=== PATIENT | female | born 1985 | race Caucasian/White ===

== ENCOUNTER 2016-10-14 05:05 | Emergency (ER) | payer OTHER ==
[~2016-10-14] VITALS: Ht 157.5 cm; Wt 72.7 kg
[~2016-10-14 05:05] MED LIST: ACET1TAB40 PO; AMO500 PO; CEPH-443 PO; VIGA RIGHT EYE
[2016-10-14 05:20] VITALS: Ht 157.5 cm; Wt 72.7 kg
[2016-10-14] MEDS ORDERED: IBUP-1542 PO (06:24)
[2016-10-14] MEDS ORDERED: CEPH-443 PO (06:24)
--- NOTE | 2016-10-14 06:32 | ERD ---
ER Documentation Chief Complaint Date/Time DATE: 10/14/16 TIME: 06:26 Chief Complaint LT BIG TOE/NAIL PAIN AND SWELLING HX DM. STATES "THROBBING PAIN" HPI 30-year-old female with history of diabetes complaining of pain around her left big toenail. Patient states that she accidentally pulled back the lateral edge of the left big toe nail 2 days ago. A call some bleeding and pain. She has been having pain ever since. And that toe surrounding the nail is swollen. Because she has diabetes, she is concerned about infection. She takes glipizide daily for her diabetes, but does not check her blood sugar daily. Denies fever or chills. ROS All systems reviewed and are negative except as per history of present illness. Medications Home Meds Active Scripts Cephalexin* (Keflex*) 500 Mg Capsule, 500 MG PO QID for 5 Days, CAP Prov:MIHIR RUDOLPH LOCKSTITCH HEMMER 10/14/16 Ibuprofen* (Motrin*) 600 Mg Tab, 600 MG PO Q6H Y for PAIN AND OR ELEVATED TEMP, #30 TAB Prov:MIHIR RUDOLPH LOCKSTITCH HEMMER 10/14/16 Moxifloxacin Hcl* (Vigamox*) 0.5% - 3 Ml Opht, 1 DROP RIGHT EYE TID, #1 EA Prov:JEREMIAS GRAVES PA-C 12/19/15 Cephalexin* (Keflex*) 500 Mg Capsule, 500 MG PO QID for 5 Days, CAP Prov:JEREMIAS GRAVES PA-C 12/19/15 Acetaminophen-Codeine* (Acetaminophen-Cod #3*) 300-30 Mg Tab, 1 TAB PO Q4H Y for PAIN, #10 TAB Prov:KELLY WONG NP 07/20/15 Amoxicillin* (Amoxicillin*) 500 Mg Cap, 500 MG PO TID for 10 Days, CAP Prov:KELLY WONG LOCKSTITCH HEMMER 07/20/15 Allergies Allergies: Coded Allergies: No Known Drug Allergies (Verified Allergy, Unknown, 12/19/15) PMhx/Soc Medical and Surgical Hx: pt denies Surgical Hx History of Surgery: No Anesthesia Reaction: No Hx Neurological Disorder: No Hx Respiratory Disorders: No Hx Cardiac Disorders: No Hx Psychiatric Problems: No Hx Miscellaneous Medical Probl: Yes (DM ) Hx Alcohol Use: Yes Hx Substance Use: No Hx Tobacco Use: No Smoking Status: Never smoker Physical Exam Vitals Vital Signs Date Time Temp Pulse Resp B/P Pulse Ox O2 Delivery O2 Flow Rate FiO2 10/14/16 05:20 97.4 89 18 123/84 98 Physical Exam General: Well-developed, well-nourished, conscious and coherent, in no distress Skin: Warm and dry without rash, good texture and turgor Head: Normocephalic without evidence of trauma Eyes: Sclera and conjunctivae normal; pupils equal, round, and reactive to light; extraocular movements are intact Chest: Normal AP diameter. Good expansion without retractions. Nontender. Lungs are clear to auscultate bilaterally with good tidal volume Heart: Regular rate and rhythm. No murmur, rub, or gallops heard Extremities: Distal left big toe erythematous and swollen, slightly warm to touch, extremely tender. Full range of motion. Good strength bilaterally. No clubbing, cyanosis, or edema. Peripheral pulses are intact. Sensation intact Neuro: Alert and oriented 4, GCS 15. Cranial nerves grossly intact. Motor and sensory exams nonfocal. Moves all extremities. Speech clear. Gait normal Procedures/MDM 30-year-old female with history of diabetes present in the ED with left big toe pain. It appears that her big toe is infected. Antibiotics is prescribed. Patient is advised to soak the affected foot in hot water daily. If she does not improve, she may return to ED to have the affected toenail removed. Low suspicion for osteomyelitis, necrotizing fasciitis, or fracture. Patient appears well, stable for discharge and outpatient management. Medical decision making shared with patient and family. Education provided to patient and family. Patient and family expressed understanding of the plan. Medications on discharge: Keflex, ibuprofen. Follow-up: Primary care provider in 2-3 days or return to ED if worse. Disclaimer: Inadvertent spelling and grammatical errors are likely due to EHR/ dictation software use and do not reflect on the overall quality of patient care. Also, please note that the electronic time recorded on this note does not necessarily reflect the actual time of the patient encounter. Departure Diagnosis: Primary Impression: Toe pain, left Condition: Good Patient Instructions: Ingrown Toenail, Infected (Abx Only) Additional Instructions: Call your primary care doctor TOMORROW for an appointment during the next 2-3 days.See the doctor sooner or return here if your condition worsens before your appointment time. MIHIR RUDOLPH NP Oct 14, 2016 06:32
== END 2016-10-14 06:37 | disposition home or self-care (01) ==
LOC: FTE 05:05
DX: M79.675 Pain in left toe(s) (principal); E11.9 Type 2 diabetes mellitus without complications
CPT/HCPCS: 99283

== ENCOUNTER 2016-12-16 19:33 | Emergency (ER) | payer OTHER ==
[~2016-12-16] VITALS: Ht 162.6 cm; Wt 70.5 kg
[~2016-12-16 19:33] MED LIST changes: -AMO500 PO; +AMOX500C2 PO; +IBUP-1542 PO
[2016-12-16 19:36] VITALS: Ht 162.6 cm; Wt 70.5 kg
--- NOTE | 2016-12-16 20:39 | ERD ---
ER Documentation Chief Complaint Date/Time DATE: 12/16/16 TIME: 20:30 Chief Complaint left big toe abscess w/ drainage HPI 30-year-old female presents emergency department for left big toe ingrown. Stated she went to a nail spa and have them try to remove the ingrown. LMP: Stated that she found out that she is . A0. Denies headache, dizziness, blurred vision, neck pain, difficulty swallowing, shoulder pain, back pain, nausea, vomiting, numbness or tingling sensation, difficulty walking, direct trauma, fever, chills. No known drug allergies. Past medical history of diabetes. No surgeries. Medication: Glipizide. Social: Not working this time. Denies smoking, use of alcohol, illegal drugs. ROS All systems reviewed and are negative except as per history of present illness. Medications Home Meds Active Scripts Vit No.124/Iron/FA ( Vitamin Tablet) 1 Each Tablet, 1 EACH PO DAILY for 30 Days, TAB Prov:MELISSA SCHRADER F 12/16/16 Acetaminophen* (Tylophen*) 500 Mg Capsule, 1 CAP PO Q6H Y for PAIN AND OR ELEVATED TEMP, #20 CAP Prov:MELISSA SCHRADER F 12/16/16 Amoxicillin/Potassium Clav (Amox-Clav 875-125 mg Tablet) 875-125 mg Tab, 1 TAB PO BID for 7 Days, #20 TAB Prov:MELISSA SCHRADER F 12/16/16 Cephalexin* (Keflex*) 500 Mg Capsule, 500 MG PO QID for 5 Days, CAP Prov:MIHIR RUDOLPH. SOFTWARE QUALITY ANALYST 10/14/16 Ibuprofen* (Motrin*) 600 Mg Tab, 600 MG PO Q6H Y for PAIN AND OR ELEVATED TEMP, #30 TAB Prov:MIHIR RUDOLPH. SOFTWARE QUALITY ANALYST 10/14/16 Moxifloxacin Hcl* (Vigamox*) 0.5% - 3 Ml Opht, 1 DROP RIGHT EYE TID, #1 EA Prov:JEREMIAS GRAVES PA-C 12/19/15 Cephalexin* (Keflex*) 500 Mg Capsule, 500 MG PO QID for 5 Days, CAP Prov:JEREMIAS GRAVES PA-C 12/19/15 Acetaminophen-Codeine* (Acetaminophen-Cod #3*) 300-30 Mg Tab, 1 TAB PO Q4H Y for PAIN, #10 TAB Prov:KELLY WONG NP 07/20/15 Amoxicillin* (Amoxicillin*) 500 Mg Cap, 500 MG PO TID for 10 Days, CAP Prov:KELLY WONG SOFTWARE QUALITY ANALYST 07/20/15 Allergies Allergies: Coded Allergies: No Known Drug Allergies (Verified Allergy, Unknown, 12/19/15) PMhx/Soc History of Surgery: No Anesthesia Reaction: No Hx Neurological Disorder: No Hx Respiratory Disorders: No Hx Cardiac Disorders: No Hx Psychiatric Problems: No Hx Miscellaneous Medical Probl: Yes (DM ) Hx Alcohol Use: Yes Hx Substance Use: No Hx Tobacco Use: No Smoking Status: Never smoker Physical Exam Vitals Vital Signs Date Time Temp Pulse Resp B/P Pulse Ox O2 Delivery O2 Flow Rate FiO2 12/16/16 19:36 98.2 112 20 140/86 100 Physical Exam Const: [] Head: Atraumatic Eyes: Normal Conjunctiva ENT: Normal External Ears, Nose and Mouth. Neck: Full range of motion..~ No meningismus. Resp: Clear to auscultation bilaterally Cardio: Regular rate and rhythm, no murmurs Abd: Soft, non tender, non distended. Normal bowel sounds Skin: No petechiae or rashes. Skin is intact. Left big toe has redness and tenderness without deformity. Left big toenail is intact. No active bleeding. No discharge. No neurovascular deficits. Right foot is unremarkable. Capillary refills are WNLs. No neurovascular deficits. Ambulatory with steady gait. Back: No midline or flank tenderness Ext: No cyanosis, or edema. No neurovascular deficit. Ambulatory with steady gait. Neur: Awake and alert. No neurological deficits. Psych: Normal Mood and Affect Procedures/MDM 30-year-old female presents emergency department for left big toe ingrown. Stated she went to a nail spa and have them try to remove the ingrown. LMP: Stated that she found out that she is . A0. Denies headache, dizziness, blurred vision, neck pain, difficulty swallowing, shoulder pain, back pain, nausea, vomiting, numbness or tingling sensation, difficulty walking, direct trauma, fever, chills. No known drug allergies. Past medical history of diabetes. No surgeries. Medication: Glipizide. Social: Not working this time. Denies smoking, use of alcohol, illegal drugs. Physical exam: Left big toe has redness and tenderness without deformity. Left big toenail is intact. No active bleeding. No discharge. No neurovascular deficits. Right foot is unremarkable. Skin is intact. Capillary refills are WNLs. No neurovascular deficits. Ambulatory with steady gait. Prescription: Augmentin. Tylenol. Vitamins. Follow-up with PCP in the next 24-48 hours. PCP to refer patient to hospital monitor in the next 24-48 hours. Come back in the emergency department for any new symptoms or any worsening of symptoms. All questions and concerns were answered. Patient verbalized understanding and agreed with the plan of care. Hemodynamically stable on discharge. Departure Diagnosis: Primary Impression: Ingrown left big toenail Condition: Stable Additional Instructions: Follow-up with PCP in the next 24-48 hours. PCP to refer patient to hospital monitor in the next 24-48 hours. Come back in the emergency department for any new symptoms or any worsening of symptoms. All questions and concerns were answered. Patient verbalized understanding and agreed with the plan of care. MELISSA SCHRADER Dec 16, 2016 20:39
[2016-12-16] MEDS ORDERED: ACET500C5 PO (20:40)
[2016-12-16] MEDS ORDERED: AMOX1TAB10 PO (20:40)
[2016-12-16] MEDS ORDERED: PREN-93 PO (20:41)
== END 2016-12-16 20:51 | disposition home or self-care (01) ==
LOC: FTE 19:33
DX: O99.719 Diseases of the skin and subcutaneous tissue complicating pregnancy, unspecified trimester (principal); L60.0 Ingrowing nail; O24.119 Pre-existing type 2 diabetes mellitus, in pregnancy, unspecified trimester; Z79.84 Long term (current) use of oral hypoglycemic drugs; Z3A.00 Weeks of gestation of pregnancy not specified
CPT/HCPCS: 99283